=== PATIENT | female | born 1980 | race Caucasian/White ===

== ENCOUNTER 2022-06-12 22:51 | Emergency (ER) | payer OTHER ==
[2022-06-12 23:02] VITALS: BP 103/65; PULSE 101; RESP 18; TEMP 99.1; BMI 35.4
== END 2022-06-12 23:33 | disposition home or self-care (01) ==
LOC: FER 22:51
DX: J06.9 Acute upper respiratory infection, unspecified (principal)
CPT/HCPCS: 0241U-QW; 99283-25